=== PATIENT | female | born 1995 | race Caucasian/White ===

== ENCOUNTER 2024-09-10 15:40 | Emergency (ER) | payer BC ==
[~2024-09-10] VITALS: Ht 172.7 cm; Wt 133.0 kg
[2024-09-10 15:44] VITALS: O2SAT 99
[2024-09-10] MEDS: TETANUS, DIPHTHERIA, PERTUSSIS VAC/PF 0.5ML (>10YR OLD) IM ONE (17:12)
[2024-09-10] MEDS ORDERED: LIDOCAINE HCL/EPINEPHRINE 1%-EPI 1:100,000 10ML VIAL INFIL ONE (17:45)
[2024-09-10] MEDS ORDERED: LIDOCAINE HCL/EPINEPHRINE 1%-EPI 1:100,000 10ML VIAL INFIL NR (18:30)
[2024-09-10] MEDS ORDERED: LIDOCAINE HCL/EPINEPHRINE 1%-EPI 1:100,000 20ML VIAL INFIL NR (18:45)
[2024-09-10 20:11] VITALS: BP 158/96; PULSE 87; RESP 18; TEMP 37.1; O2SAT 99
== END 2024-09-10 20:15 | disposition home or self-care (01) ==
LOC: ER 15:40
DX: S01.81XA Laceration without foreign body of other part of head, initial encounter (principal); S09.90XA Unspecified injury of head, initial encounter; W19.XXXA Unspecified fall, initial encounter; Y93.89 Activity, other specified; Y92.89 Other specified places as the place of occurrence of the external cause; Y99.8 Other external cause status
CPT/HCPCS: 99284; 70450; 73080; 73120; 12013; J2004